=== PATIENT | female | born 1995 | race Two or more races ===

== ENCOUNTER 2018-10-31 17:58 | Emergency (ER) | payer OTHER ==
[2018-10-31] MEDS ORDERED: ONDANSETRON 4 MG TAB.RAPDIS PO ONE (18:23)
[2018-10-31] MEDS ORDERED: KETOROLAC TROMETHAMINE 60 MG/2 ML SDV IM ONE (18:24)
--- NOTE | 2018-10-31 18:26 | ER Document Report ---
ED Medical Screen (RME) - General Chief Complaint: Abdominal Pain Stated Complaint: ABDOMINAL PAIN Time Seen by Provider: 10/31/18 18:23 Mode of Arrival: Wheelchair Information source: Patient Notes: 22-year-old female presented to ED for epigastric pain radiating to the right upper quadrant. She states the pain now goes through to the back. She states she was diagnosed with gallstones a year ago and they did not do surgery to remove them. She states she is been nausea and vomiting all day. She does have a history of her wisdom teeth removed. She states that she just had a test that was negative. She states her also has had a vasectomy. She only medical history is gallstones. She ate last about an hour and a half ago she does not smoke drink or do any drugs. Patient is alert oriented respirations regular unlabored abdomen is soft but very tender to the right upper quadrant. I have greeted and performed a rapid initial assessment of this patient. A comprehensive ED assessment and evaluation of the patient, analysis of test results and completion of medical decision making process will be conducted by an additional ED providers. TRAVEL OUTSIDE OF THE [place] IN LAST 30 DAYS: No - Related Data Allergies/Adverse Reactions: No Known Allergies Allergy (Unverified 10/31/18 18:02) Past Medical History - Social History Chew tobacco use (# tins/day): No Frequency of alcohol use: None Drug Abuse: None Renal/ Medical History: Denies: Hx Peritoneal Dialysis Past Surgical History: Reports: Hx Oral Surgery - wisdom teeth Physical Exam - Vital signs Vitals: Temp Pulse Resp BP Pulse Ox 97.8 F 101 H 20 146/61 H 100 10/31/18 18:04 10/31/18 18:04 10/31/18 18:04 10/31/18 18:04 10/31/18 18:04 Course - Vital Signs Vital signs: Temp Pulse Resp BP Pulse Ox 97.8 F 101 H 20 146/61 H 100 10/31/18 18:04 10/31/18 18:04 10/31/18 18:04 10/31/18 18:04 10/31/18 18:04
[2018-10-31 19:17] LABS: APPEARANCE,URINE CLEAR; BILIRUBIN,URINE NEGATIVE (NEGATIVE); COLOR,URINE YELLOW; GLUCOSE, URINE NEGATIVE (NEGATIVE); KETONES,URINE NEGATIVE (NEGATIVE); LEUKOCYTE ESTERASE,URINE NEGATIVE (NEGATIVE); NITRITE,URINE NEGATIVE (NEGATIVE); PROTEIN,URINE NEGATIVE (NEGATIVE); URINE SPECIFIC GRAVITY 1.018; UROBILINOGEN,URINE NEGATIVE mg/dL (<2.0)
--- NOTE | 2018-10-31 19:38 | RADIOLOGY REPORT (SQ) ---
EXAM DESCRIPTION: U/S ABDOMEN LTD W/DOPPLER COMPLETED DATE/TIME: 10/31/2018 7:23 pm REASON FOR STUDY: ruq abdominal pain gall stone COMPARISON: None. TECHNIQUE: Dynamic and static grayscale images acquired of the abdomen and recorded on PACS. Kwasio mary jo selected color Doppler and spectral images recorded. LIMITATIONS: None. FINDINGS: PANCREAS: No masses. Visualized pancreatic duct normal caliber. LIVER: No masses. Echotexture normal. LIVER VASCULATURE: Normal directional flow of the main portal vein and hepatic veins. GALLBLADDER: Multiple gallstones, including gallstones in the neck of the gallbladder. No wall thick ening. No pericholecystic fluid. ULTRASOUND-DETECTED ACOSTA'S SIGN: Negative. INTRAHEPATIC DUCTS AND COMMON DUCT: CBD and intrahepatic ducts normal caliber. No filling defects. INFERIOR VENA CAVA: Not imaged. AORTA: No aneurysm. RIGHT KIDNEY: Normal size, 10.2 cm. Normal echogenicity. No solid or suspicious masses. No hydroneph rosis. No calcifications. PERITONEAL AND RIGHT PLEURAL SPACE: No ascites or effusions. OTHER: No other significant findings. IMPRESSION: Cholelithiasis with no evidence of cholecystitis.c TECHNICAL DOCUMENTATION: JOB ID: [id number] [employer]- All Rights Reserved Reading location - IP/workstation name: [email or web address]
[2018-10-31] MEDS ORDERED: OXYCODONE-ACETAMINOPHEN 5-325 MG TABLET PO ONE (20:31)
[2018-10-31 20:38] LABS: HEMATOCRIT 37.3 % (36.0-47.0); HEMOGLOBIN 11.9 g/dL (12.0-15.5); MEAN CORPUSCULAR HEMOGLOBIN 25.5 pg (27.0-33.4); MEAN CORPUSCULAR HGB CONC 31.9 g/dL (32.0-36.0); MEAN CORPUSCULAR VOLUME 80 fl (80-97); PLATELET COUNT 284 10^3/uL (150-450); RED BLOOD COUNT 4.66 10^6/uL (3.72-5.28); RED CELL DISTRIBUTION WIDTH 14.8 % (11.5-14.0)
[2018-10-31 20:56] LABS: ALANINE AMINOTRANSFERASE 48 U/L (9-52); ALKALINE PHOSPHATASE 100 U/L (38-126); ANION GAP 14 (5-19); ASPARTATE AMINO TRANSFERASE 82 U/L (14-36); BILIRUBIN,DIRECT 0.4 mg/dL (0.0-0.4); BILIRUBIN,TOTAL 0.7 mg/dL (0.2-1.3); BLOOD UREA NITROGEN 18 mg/dL (7-20); CALCIUM 9.6 mg/dL (8.4-10.2); CARBON DIOXIDE 23 mmol/L (22-30); CHLORIDE 104 mmol/L (98-107); GLUCOSE 106 mg/dL (75-110); POTASSIUM 4.3 mmol/L (3.6-5.0); SODIUM 141.1 mmol/L (137-145); TOTAL PROTEIN 7.6 g/dL (6.3-8.2)
[2018-10-31 20:58] LABS: ABSOLUTE LYMPHOCYTES# (MANUAL) 1.6 10^3/uL (0.5-4.7); ABSOLUTE MONOCYTES # (MANUAL) 1.4 10^3/uL (0.1-1.4); BASOPHILS % (MANUAL) 0 % (0-2); EOSINOPHILS % (MANUAL) 0 % (0-6); LIPASE 68.3 U/L (23-300); LYMPHOCYTES % (MANUAL) 7 % (13-45); MONOCYTES % (MANUAL) 6 % (3-13); RBC MORPHOLOGY COMMENT MN; SEGMENTED NEUTROPHILS % (MAN) 87 % (42-78); TOTAL CELLS COUNTED 100
[2018-10-31 20:59] LABS: PLATELET COMMENT ADEQUATE
--- NOTE | 2018-10-31 22:38 | RADIOLOGY REPORT (SQ) ---
EXAM DESCRIPTION: CT ABDOMEN PELVIS WITH IV CONTRAST COMPLETED DATE/TME: 10/31/2018 21:33 CLINICAL HISTORY: 22 years, Female, high white count, epigastric pain, vomiting COMPARISON: None. TECHNIQUE: Contrast enhanced CT of the abdomen/pelvis was performed. Coronal and sagittal reformations were created. Images stored on PACS. All CT scanners at this facility use dose modulation, iterative reconstruction, and/or weight based dosing when appropriate to reduce radiation dose to as low as reasonably achievable (ALARA). [facility]: Dose Right [facility]: CareDose [facility]: Dose Right [facility]: Teradose 4D [facility]: Superplayer LIMITATIONS: None. FINDINGS: Limited evaluation of the lower chest reveals clear lung bases. Assessment of the liver reveals a geographic area of hypodensity located about the left hepatic lobe adjacent to the falciform ligament, likely indicating an area of focal fatty infiltration or third inflow artifact. The liver otherwise enhances normally. The spleen, pancreas, and both adrenal glands appear normal. Gallstones are noted about the gallbladder lumen. Both kidneys enhance symmetrically. There is no hydronephrosis or hydroureter. The urinary bladder is well distended and shows no suspicious finding. The uterus and both ovaries appear normal. However, there is a corpus luteal cyst about the right ovary, a benign finding for which no further follow-up is necessary. A small amount of fluid layers dependently within the pelvis. The small and large bowel appear normal in caliber without areas of focal wall thickening. No evidence of bowel obstruction. The appendix is normal. Vascular structures opacify with contrast normally. There are no drainable fluid collections. Bone windows show no destructive osseous lesions. IMPRESSION: No acute abnormality within the abdomen or pelvis. Cholelithiasis. Small amount of free fluid within the pelvis, likely physiologic. TECHNICAL DOCUMENTATION: Quality ID # [id number]: Final reports with documentation of one or more dose reduction techniques (e.g., Automated exposure control, adjustment of the mA and/or kV according to patient size, use of iterative reconstruction technique) copyright 2011 [employer]- All Rights Reserved
--- NOTE | 2018-10-31 23:01 | ER Document Report ---
ED General - General Chief Complaint: Abdominal Pain Stated Complaint: ABDOMINAL PAIN Time Seen by Provider: 10/31/18 18:23 Primary Care Provider: MARYURI PALOMARES DO [Primary Care Provider] - Follow up as needed Mode of Arrival: Wheelchair Information source: Patient TRAVEL OUTSIDE OF THE [place] IN LAST 30 DAYS: No - HPI Patient complains to provider of: Epigastric pain radiating to the back Onset: Yesterday Onset/Duration: Sudden, Persistent, Worse Quality of pain: Sharp Severity: Severe Pain Level: 5 Associated symptoms: Nausea. denies: Chills, Diarrhea, Fever, Vomiting Exacerbated by: Denies Relieved by: Denies Similar symptoms previously: No Recently seen / treated by doctor: No Notes: Patient is a 22-year-old female coming in today with chief complaint epi gastric pain that radiates straight through to her back with some nausea. No vomiting. Had the same episode a day or 2 ago when she was in [place]. She was seen at a hospital in [place]. She was told to take Carafate. She was told that she had a number of gallstones. Told she would probably need to have it removed. Pain was worse today so she came in to be checked. Afebrile. No shaking chills - Related Data Allergies/Adverse Reactions: No Known Allergies Allergy (Unverified 10/31/18 18:02) Past Medical History - General Information source: Patient - Social History Smoking Status: Unknown if Ever Smoked Chew tobacco use (# tins/day): No Frequency of alcohol use: None Drug Abuse: None Family History: Reviewed & Not Pertinent Patient has suicidal ideation: No Patient has homicidal ideation: No Renal/ Medical History: Denies: Hx Peritoneal Dialysis Past Surgical History: Reports: Hx Oral Surgery - wisdom teeth Review of Systems - Review of Systems Notes: Constitutional: No fevers. No chills. EENT: No eye redness. No eye pain. No ear pain. No sore throat. Cardiovascular: No chest pain. No palpitations. Respiratory: No cough. No shortness of breath. No respiratory distress. Gastrointestinal: Positive for abdominal pain, positive for nausea, negative for vomiting diarrhea Genitourinary: Atraumatic. No lesions. No pain. No discharge. Musculoskeletal: Atraumatic. No swelling. No deformities. Skin: No rash or lesions. Lymphatic: No swollen lymph nodes. Neurologic: No headache. No syncope. Psychiatric: No suicidal or homicidal ideation. Physical Exam - Vital signs Vitals: Temp Pulse Resp BP Pulse Ox 97.8 F 101 H 20 146/61 H 100 10/31/18 18:04 10/31/18 18:04 10/31/18 18:04 10/31/18 18:10/31/18 18:04 - Notes Notes: General: Well-developed, well-nourished. In no acute distress. Non-toxic appearing. Cardiac: Well-perfused. Regular rate and rhythm. No murmurs, rubs, or gallops. Pulmonary: No respiratory distress. No cyanosis. Bilateral lung fiels are clear to auscultation. Abdominal: Epigastric tenderness to palpation. Bowel sounds present all 4 quadrants. No guarding or rebound. HEENT: Head is atraumatic. Conjunctivae not reddened. No tearing. PERRL. EOMI. Orbits atraumatic. No periorbital swelling or erythema. Oropharynx is without erythema, swelling, or exudates. Neck: Supple. No adenopathy. No meningismus. Dermatologic: Warm with good turgor. No rash. Atraumatic. Chest: Atraumatic. No chest wall tenderness to palpation. Musculoskeletal: Moves all extremities well. No range of motion deficits. no muscular or joint tenderness. No paraspinal muscle tenderness. no midline spinal tenderness or step-off. Genitourinary: Examination deferred Neurologic: No gross neurologic deficits. Psychiatric: Normal mood. Course - Re-evaluation Re-evalutation: 10/31/18 22:59 Patient has a puzzling 23,[address] Ultrasound and CT are both negative. Lipase is negative. Urinalysis is negative. In any event, the patient has an appointment with the general surgeon at the [facility] tomorrow. We will give her take home [place] and [place] and she can follow-up with him or her tomorrow for further evaluation of the gallbladder. Also here she will be able to recheck her white blood cell count. - Vital Signs Vital signs: Temp Pulse Resp BP Pulse Ox 97.8 F 101 H 20 146/61 H 100 10/31/18 18:04 10/31/18 18:04 10/31/18 18:10/31/18 18:04 10/31/18 18:04 - Laboratory Result Diagrams: 10/31/18 20:07 10/31/18 20:07 Laboratory results interpreted by me: 10/31/18 10/31/18 20:07 20:07 WBC 23.0 H Hgb 11.9 L MCH 25.5 L MCHC 31.9 L RDW 14.8 H Seg Neuts % (Manual) 87 H Lymphocytes % (Manual) 7 L Abs Neuts (Manual) 20.0 H AST 82 H Discharge - Discharge Clinical Impression: Epigastric pain Leukocytosis Qualifiers: Leukocytosis type: unspecified Qualified Code(s): D72.829 - Elevated white blood cell count, unspecified Cholelithiasis Qualifiers: Cholelithiasis location: gallbladder Cholecystitis presence: without cholecystitis Biliary obstruction: without biliary obstruction Qualified Code(s): K80.20 - Calculus of gallbladder without cholecystitis without obstruction Condition: Good Disposition: HOME, SELF-CARE Instructions: Abdominal Pain ([facility]), Antinausea Medication ([facility]), Gallbladder Disease ([facility]) Additional Instructions: [place]. It is also very important to have your white blood cell count rechecked as this is an elevated number. We did not find any obvious sources or causes for your blood count to be this elevated. London as needed for moderate to severe pain only. Zofran as needed for nausea and vomiting. Prescriptions: Hydrocodone/Acetaminophen [London 5-325 mg Tablet] 1 tab PO Q6HP PRN #12 tablet PRN Reason: Referrals: MARYURI PALOMARES DO [Primary Care Provider] - Follow up as needed surgeon, general [Other] - Follow up tomorrow
[2018-10-31] MEDS ORDERED: ONDANSETRON ODT 4 MG TAB (6 TAB/ER DISP) PO PRN (23:04)
[2018-10-31] MEDS ORDERED: HYDROCODONE/ACETAMINOPHEN 5-325 MG (6 TAB/ER DISP) PO PRN (23:04)
[2018-10-31 23:21] VITALS: BP 101/50
== END 2018-10-31 23:55 | disposition home or self-care (01) ==
LOC: ER 17:58
DX: K80.20 Calculus of gallbladder without cholecystitis without obstruction (principal); D72.829 Elevated white blood cell count, unspecified; R10.13 Epigastric pain; R11.0 Nausea
CPT/HCPCS: 99284; 96372; 36415; 83690; 84703; 85025; 80053; 81001; 76705; 93976; 74177; J1885; S0119